=== PATIENT | female | born 1970 | race African-American/Black ===

== ENCOUNTER → 2020-03-17 | Outpatient (CLI) | payer OTHER ==
[~2020-03-17] MED LIST: COVID-19 VACC, MRNA(MODERNA)/PF 100 MCG/0.5 ML VIAL IM ONE
== END ==
LOC: VACCPMC 18:00
DX: Z23 Encounter for immunization (principal); Z20.822 Contact with and (suspected) exposure to COVID-19

== ENCOUNTER → 2020-04-20 | Outpatient (CLI) | payer OTHER | END | DRG 951 | LOC: VACCPMC 09:52 | DX: Z23 Encounter for immunization (principal); Z20.822 Contact with and (suspected) exposure to COVID-19 | CPT/HCPCS: 0012A; 91301 ==

== ENCOUNTER → 2021-01-11 | Outpatient (CLI) | payer OTHER | LOC: VACCPMC 09:00 | DX: Z23 Encounter for immunization (principal); Z20.822 Contact with and (suspected) exposure to COVID-19 ==

== ENCOUNTER 2024-04-11 13:00 | Outpatient (RCR) | payer BC | END 2024-04-12 | LOC: PT 13:00 | PROVIDERS: ATTEND Orthopaedic Surgery | DX: S83.271A Complex tear of lateral meniscus, current injury, right knee, initial encounter (principal) ==

== ENCOUNTER 2024-05-09 09:00 | Outpatient (RCR) | payer BC, SELFPAY | END 2024-05-10 | LOC: PT 09:00 | PROVIDERS: ATTEND Orthopaedic Surgery | DX: S83.271A Complex tear of lateral meniscus, current injury, right knee, initial encounter (principal) ==

== ENCOUNTER → 2024-06-10 | Outpatient (RCR) | payer SELFPAY | LOC: PT 05-13 07:39 | PROVIDERS: ATTEND Orthopaedic Surgery | DX: S83.271A Complex tear of lateral meniscus, current injury, right knee, initial encounter (principal) ==

== ENCOUNTER 2024-06-24 09:00 | Outpatient (RCR) | payer SELFPAY | END 2024-07-10 | LOC: PT 09:00 | PROVIDERS: ATTEND Orthopaedic Surgery | DX: S83.271A Complex tear of lateral meniscus, current injury, right knee, initial encounter (principal) ==

== ENCOUNTER 2024-08-19 18:22 | Emergency (ER) | payer BC, OTHER ==
[~2024-08-19] VITALS: Ht 170.2 cm; Wt 80.3 kg
[2024-08-19 18:30] VITALS: TEMP 97.8
[2024-08-19] MEDS: IBUPROFEN 600 MG TAB PO STA (19:11)
[2024-08-19 19:21] LABS: CLARITY,URINE CLEAR (CLEAR); COLOR,URINE COLORLESS (YELLOW)
[2024-08-19 19:22] LABS: BILIRUBIN,URINE NEGATIVE (NEGATIVE); GLUCOSE, URINE NEGATIVE (NEGATIVE); KETONES,URINE 1+ (NEGATIVE); LEUKOCYTE ESTERASE ,URINE NEGATIVE (NEGATIVE); NITRITE,URINE NEGATIVE (NEGATIVE); PH,URINE 6 (5 - 7); PROTEIN,URINE DIPSTICK NEGATIVE (NEGATIVE); URINE UROBILINOGEN 0.2 mg/dL (0.2 - 1)
[2024-08-19 19:35] LABS: EPITHELIAL CELLS,URINE FEW /LPF; WBC,URINE (MAN) 0-5 /HPF (0-5)
[2024-08-19] MEDS ORDERED: CYCLOBENZAPRINE5 MG PO (20:44)
[2024-08-19] MEDS ORDERED: NAPROSYN500 MG PO (20:44)
[2024-08-19 20:51] VITALS: PULSE 62; RESP 18; O2SAT 100
== END 2024-08-19 20:51 | disposition home or self-care (01) ==
LOC: ER 18:54
DX: S20.221A Contusion of right back wall of thorax, initial encounter (principal); W22.8XXA Striking against or struck by other objects, initial encounter; Y99.0 Civilian activity done for income or pay
CPT/HCPCS: 71101; 81001; 99283